=== PATIENT | male | born 1980 | race Caucasian/White ===

== ENCOUNTER → 2016-10-26 | Outpatient (CLI) | payer OTHER ==
[~2016-10-26] MED LIST: PRD50T PO
--- NOTE | 2016-10-26 12:12 | Diagnostic Imaging Report ---
Scrotal ultrasound. INDICATION: Infertility. Left scrotal lump. FINDINGS: The right testicle is 4.5 x 2.5 x 3.1 CM. The left testicle is 4.3 x 2.8 x 3.3 CM. The testicle parenchyma is homogeneous bilaterally with no focal lesion identified. There is symmetric vascularity in both testicles also seen. There is no significantly dilated veins in the scrotum to suggest varicocele. There is a small hydrocele seen bilaterally, however. IMPRESSION: Bilateral small hydrocele. Dictated by: Dictated on workstation # [id number]
== END ==
LOC: RAD 10:11
PROVIDERS: ATTEND Urology
DX: N43.3 Hydrocele, unspecified (principal); N46.9 Male infertility, unspecified
CPT/HCPCS: 76870

== ENCOUNTER 2017-09-27 08:25 | Outpatient (RCR) | payer SELFPAY ==
[2017-09-27 11:09] LABS: SEMEN VOLUME 4.5 ML (1.5-5.0)
== END 2017-12-26 | disposition home or self-care (01) ==
LOC: LAB 08:25
PROVIDERS: ATTEND Obstetrics & Gynecology Reproductive Endocrinology
DX: N46.9 Male infertility, unspecified (principal)
CPT/HCPCS: 89320